=== PATIENT | female | born 1995 | race Caucasian/White ===

== ENCOUNTER 2018-12-07 12:10 | Emergency (ER) | payer OTHER ==
[~2018-12-07] VITALS: Ht 167.7 cm; Wt 70.5 kg
--- NOTE | 2018-12-07 12:47 | ED GU-Female ---
General Chief Complaint: MANAGER LOCAL Stated Complaint: CONTRACTIONS History of Present Illness Date Seen by Provider: Dec 07, 2018 Time Seen by Provider: 12:15 Initial Comments The patient is a 23-year-old female, at 37 weeks gestational age, who pres ents with concern for contractions. The patient is in care home custody. Patient has been having contractions about 2-3 minutes apart starting earlier this morning. They have not progressed significantly. Patient was at her fastener technologist's office (Dr. Shirley) for this issue just prior to arrival. He instructed the patient and the upscale security officer escorting her that she was not in active labor and that she was safe to be driven by private vehicle to an appropriate hospital facility with labor and delivery available. Care Home supervisors adamantly refused to follow through on this and instead instructed the patient's escorting correctional o fficer to transport her to this freestanding emergency department without any obstetric support available. Patient is alert and oriented and has appropriate vital signs and denies any significant pain, and notes the contractions remain about 2-3 minutes apart. A cervical check demonstrates no progression and patient is noted to be dilated to about 1 cm at this time, the same as she was at the fastener technologist's office just prior to arrival. I discussed the situation with Dr. Shirley by telephone and he agrees with me that the patient is safe and appropriate for transfer to [facility] for labor and delivery admission. He accepts her for transfer to that facility, where they are anywhere for her and waiting. We'll proceed with EMS transfer at this time. Allergies and Home Medications Patient Home Medication List Home Medication List Reviewed: Yes Review of Systems Review of Systems Constitutional: see HPI All Other Systemes Reviewed Negative Unless Noted: Yes (Negative excepted noted.) Past Bubpxdu-Ljyfgj-Axelgg Hx Past Med/Social Hx: Reviewed Nursing Past Med/Soc Hx Family Medical History Reviewed Nursing Family Hx Physical Exam Vital Signs Capillary Refill : Height, Weight, BMI Height: '" Weight: lbs. oz. kg; BMI Method: General Appearance: no apparent distress This is a gravid 23-year-old female appearing nontoxic and in no acute distress. Head is normocephalic and atraumatic. Neck is supple and nontender. Oropharynx is moist. Lungs are clear to auscultation in all stations. There is a normal S1 and S2 without rubs or gallops and capillary refill is appropriate, less than 2 seconds globally. Abdomen is gravid appropriate to stated dates and is nontender. Skin is warm and dry without cyanosis, clubbing or edema. Cervix is dilated to 1 cm on examination. Psychiatrically, the patient in a straights appropriate mood and affect and is alert. Progress/Results/Core Measures Suspected Sepsis SIRS Temperature: Pulse: Respiratory Rate: Blood Pressure / Mean: Results/Orders Vital Signs/I&O Capillary Refill : Progress Note : Time: 12:48 Progress Note Cervix dilated only to 1 cm and heart tones are appropriate and maternal vital signs are appropriate and mom is alert and oriented and in no distress. The patient is not in active labor. Case discussed with Dr. Shirley, the patient's fastener technologist, who agrees with prompt transfer to [facility] for labor and delivery admission and graciously accepts the patient in transfer. We will proceed with transfer at this time. Departure Impression Primary Impression: Uterine contractions at greater than 20 weeks of gestation Disposition: ADMITTED INPATIENT Condition: Stable BRITTANEY ELIZABETH MD Dec 07, 2018 12:47
[2018-12-07 13:20] VITALS: BP 135/72
[2018-12-07] MEDS ORDERED: PREN-37 PO (14:44)
== END 2018-12-07 13:23 | disposition other institution (70) ==
LOC: EDUNIT# 12:10 → ER FS 12:12
DX: O62.9 Abnormality of forces of labor, unspecified (principal); Z3A.37 37 weeks gestation of pregnancy
CPT/HCPCS: 99282

== ENCOUNTER 2018-12-07 14:28 | Outpatient (CLI) | payer SELFPAY ==
[~2018-12-07] VITALS: Ht 165.1 cm; Wt 71.8 kg
--- NOTE | 2018-12-07 14:12 | NUR ---
LILIANA OSSA presented to unit via CART PER EMS from ED, accompanied by EMS CREW AND OFFICER, with c/o CONTRACTIONS. LILIANA SOSA voided and to bed. EFHM and TOCO applied, VS taken. LILIANA SOSA oriented to bed controls, call light, TV, heat, and A/C controls.
[2018-12-07] MEDS ORDERED: PREN-37 PO (14:44)
[2018-12-07 14:47] LABS: BILIRUBIN,URINE NEGATIVE (NEGATIVE); CLARITY,URINE CLEAR; COLOR,URINE YELLOW; GLUCOSE, URINE (UA) NEGATIVE (NEGATIVE); KETONES,URINE 2+ (NEGATIVE); LEUKOCYTE ESTERASE ,URINE NEGATIVE (NEGATIVE); NITRITE,URINE NEGATIVE (NEGATIVE); PH,URINE 5 (5-9); PROTEIN,URINE NEGATIVE (NEGATIVE)
[2018-12-07 14:51] VITALS: BP 107/68
[2018-12-07 14:53] LABS: BACTERIA,URINE NEGATIVE /HPF; WBC,URINE RARE /HPF
--- NOTE | 2018-12-07 15:02 | NUR ---
DR. RAY NOTIFIED OF PT'S ARRIVAL, CTX PATTERN, SVE. NEW ORDER RECEIVED. PT WAS SEEN IN THE CLINIC TODAY, TRANSFERRED TO [facility] FOR TRANSPORTATION AND THEN PRESENTED HERE PER EMS. [facility] AN [facility] WITH [facility].
[2018-12-07] MEDS ORDERED: TERBUTALINE INJ 1 MG/ML (BRETHINE) AMP ONE (15:04)
[2018-12-07] MEDS ORDERED: TERBUTALINE INJ 1 MG/ML (BRETHINE) AMP SC ONE ×2 (15:15→16:30)
--- NOTE | 2018-12-07 16:26 | NUR ---
DR. RAY NOTIFIED OF CURRENT CTX PATTERN AND LATEST SVE. NEW ORDERS RECEIVED.
[2018-12-07] MEDS ORDERED: LACTATED RINGERS 1,000 ML IV ONE (16:29)
[2018-12-07] MEDS ORDERED: LACTATED RINGERS 1,000 ML IV SCH (16:30)
--- NOTE | 2018-12-07 17:35 | NUR ---
REFER TO LABOR FLOW SHEET.
--- NOTE | 2018-12-07 17:35 | NUR ---
DR. RAY NOTIFIED OF CURRENT CTX PATTER. ORDER RECEIVED FOR DISCHARGE.
--- NOTE | 2018-12-07 17:48 | NUR ---
DISCHARGE PAPERS PROVIDED AND REVIEWED WITH PT, PT VERBALIZES UNDERSTANDING AND DENIES ANY QUESTIONS AT THIS TIME. PAPER SIGNED.
--- NOTE | 2018-12-07 18:30 | NUR ---
PT DISCHARGED FROM -[facility] TO PERSONAL AUTO VIA AMBULATORY IN STABLE CONDITION ACC BY OFFICER.
--- NOTE | 2018-12-10 08:02 | Physician Query-Final Dx ---
CLAUDIA PATEL 12/10/18 0802: Clinic Account Progress/Dx Physician Query: Please give diagnosis Please include # weeks gestation Date of Service Dec 07, 2018 at 14:28 KEANU RAY DO 12/11/18 0701: Clinic Account Progress/Dx Physician Query: Please give diagnosis (Intrauterine at 37 6/7 weeks 2. Pelvic Pain 3. Contractions) DIAGNOSIS: Diagnosis Intrauterine at 37 6/7 weeks 2. Pelvic Pain 3. Contractions CLAUDIA PATEL Dec 10, 2018 08:02 KEANU RAY DO Dec 11, 2018 07:01
[2018-12-18] MEDS ORDERED: IBUP-1780 PO (08:12)
[2018-12-18] MEDS ORDERED: DOCU100C37 PO (08:12)
[2018-12-18] MEDS ORDERED: OXC5T PO (08:12)
[2018-12-18] MEDS ORDERED: ACET-77 PO (08:12)
== END 2018-12-07 18:30 | disposition home or self-care (01) ==
LOC: WSo 14:28 → LDRP 14:28 → WSo 18:30
PROVIDERS: ATTEND Obstetrics & Gynecology
DX: O62.8 Other abnormalities of forces of labor (principal); Z3A.37 37 weeks gestation of pregnancy
CPT/HCPCS: 81000; 96360; 96372; 99213

== ENCOUNTER 2018-12-17 06:00 | Inpatient (IN) | payer OTHER ==
[~2018-12-17] VITALS: Ht 165 cm; Wt 71.8 kg
[2018-12-17] VITALS (48 sets, daily range): BP systolic 93–129; BP diastolic 54–79
[~2018-12-17 06:00] MED LIST: PREN-37 PO
--- NOTE | 2018-12-17 06:05 | NUR ---
LILIANA SOSA presented to unit via ambulatory in cuffs from ED, accompanied by [facility], with c/o INDUCTION. LILIANA SOSA weighed, gowned, voided, and to bed. EFHM and TOCO applied, VS taken. LILIANA SOSA oriented to bed controls, call light, TV, heat, and A/C controls.
[2018-12-17] MEDS ORDERED: D5 LR IV SOLUTION 1,000 ML IV ONE (06:42)
[2018-12-17] MEDS: D5 LR IV SOLUTION 1,000 ML IV SCH ×2 (06:44→10:48)
[2018-12-17] MEDS ORDERED: D5 LR IV SOLUTION 1,000 ML IV SCH (06:50)
[2018-12-17] MEDS ORDERED: OXYTOCIN/NORMAL SALINE 500 ML IV SCH ×2 (06:50→13:40)
[2018-12-17] MEDS ORDERED: CATHETER FLUSH 10 ML SYR IV PRN (07:00)
[2018-12-17] MEDS ORDERED: MINERAL OIL CONCENTRATE 99.9% 15 ML UDC TOP PRN (07:00)
[2018-12-17 07:20] LABS: BASOPHILS % (AUTO) 0 % (0-10); EOSINOPHILS # (AUTO) 0.1 10^3/uL (0.0-0.3); EOSINOPHILS % (AUTO) 1 % (0-10); HEMATOCRIT 35 % (35-52); HEMOGLOBIN 11.9 G/DL (11.5-16.0); LYMPHOCYTES # (AUTO) 2.7 X 10^3 (1.0-4.0); LYMPHOCYTES % (AUTO) 19 % (12-44); MEAN CORPUSCULAR HEMOGLOBIN 31 PG (25-34); MEAN CORPUSCULAR HGB CONC 34 G/DL (32-36); MEAN CORPUSCULAR VOLUME 91 FL (80-99); MEAN PLATELET VOLUME 12.6 FL (7.4-10.4); MONOCYTES % (AUTO) 7 % (0-12); NEUTROPHILS # (AUTO) 10.1 X 10^3 (1.8-7.8); NEUTROPHILS % (AUTO) 73 % (42-75); PLATELET COUNT 206 10^3/uL (130-400); RED CELL DISTRIBUTION WIDTH 13.8 % (10.0-14.5); WHITE BLOOD COUNT 13.9 10^3/uL (4.3-11.0)
[2018-12-17] MEDS ORDERED: OXYTOCIN/NORMAL SALINE 500 ML IV ONE (07:20)
--- NOTE | 2018-12-17 07:22 | History & Physical-OB ---
OB - Chief Complaint & HPI Date/Time Date of Admission: Date of Admission: Dec 17, 2018 at 06:07 Date seen by a Provider: Dec 17, 2018 Time Seen by a Provider: 07:00 Chief Complaint/History OB-Reason for Admission/Chief: Induction of Labor Hx : 2 Hx Para: 1 Expected Date of Delivery: Dec 25, 2018 Gestational Age in Weeks: 38 Gestational Age in Days: 6 Indication for induction: other (Gestational Hypertension) Admission Nurse Assessment Rev: Yes Allergies and Home Medications Allergies Coded Allergies: No Known Drug Allergies (Unverified , 12/07/18) Home Medications Vit/Iron Fumarate/FA 1 Each Tablet, 1 EACH PO DAILY, (Reported) Patient Home Medication List Home Medication List Reviewed: Yes OB - History Hx of Present Care: Yes (Late care) Ultrasounds: Normal mid trimester US (Late ultrasound) Obstetrical Complications: Gestational Hypertension Medical Complications: Other (History of syphylis--treated) Other Concerns: Ms. Urbina is incarcerated (inmate in [facility]) Information Induced Hypertension: Yes Maternal Gestational Diabetes: No Hemorrhage: No Obstetrical History Hx : 2 Hx Para: 1 Hx # Term Pregnancies: 1 Hx # Pregnancies: 0 Number of Living Children: 1 Hx Termination: No Patient Past Medical History Treated Syphilis, last titer 1:1 Social History/Family History Sexually Transmitted Disease: Yes Alcohol Use: Regular Use Immunizations Rubella: immune RPR/VDRL: Positive GBS Status: Negative HBsAG: Negative OB - Admission Exam Physical Exam HEENT: NCAT Heart: Rhythm Normal Lungs: Clear Abdomen: Gravid Extremities: Normal Reflexes: Normal Cervical Dilatation: 1cm (Cervix 1.5 cm/40%/-3 Vertex/Intact) Effacement: 50% Station: -3 Membranes: Intact Heart Rate: 130's Accelerations: Accelerations Present Decelerations: No Decelerations Short Term Variability: Present Retirement Variability: Average (6-25) Contractions on Admission: < 5 Minutes Apart Intensity: Mild Elias Scoring Tool (Modified) Dilation (cm): 1-2cm (1) Effacement (%): 31-51% (1) Descent/Station: -3 (0) Cervix Consistency: Medium(1) Cervix Position: Posterior (0) Add 1 point for: Each previous vaginal delivery (1) OB - Assessment/Plan/Diagnosis Assessment Assessment: induction of labor Admission Dx Intrauterine at 38 6/7 weeks 2. Gestational Hypertension 3. Incarcerated Patient Admission Status: Inpatient Order (span 2 midnights) Reason for Inpatient Admission: Intrauterine at 38 6/7 weeks 2. Gestational Hypertension 3. Incarcerated Patient Plan Plan: Induction Induction Method: per Pitocin Protocol KEANU RAY DO Dec 17, 2018 07:21
[2018-12-17] MEDS ORDERED: SUFENTA 0.6MCG/ML BUPIVA 0.125 100 ML ONE (08:50)
--- NOTE | 2018-12-17 09:05 | NUR ---
0905 Leana SUTHERLAND CRNA here for epidural placement. Procedure explained, consent reviewed and signed by anesthesia. Questions answered to patient's satisfaction. Time out taken to verify correct patient/procedure. 0910 Patient up to side of bed, assisted into sitting position. 0914 Betadine prep done x3 and sterile drape applied. 0917 Local done, see anesthesia record. 0921 Test dose given, see anesthesia record for drug and dosage. 0922 Test dose #2 given, see anesthesia record for drug and dosage. Epidural catheter secured in place. Epidural placement complete. 09 Assisted back into bed, monitors adjusted. Epidural dosed, see anesthesia record. Epidural of Sufenta/Bupvicaine @12cc/hr stated per pump. Patient tolerated procedure well.
[2018-12-17] MEDS ORDERED: fentaNYL INJECTION 100 MCG/2 ML AMP ONE (09:30)
[2018-12-17] MEDS ORDERED: FLU QUADRIvalent (5+ YOA) 2019-2020 (AFLURIA) 0.5 ML IM ONE (09:45)
[2018-12-17] MEDS ORDERED: LACTATED RINGERS 1,000 ML IV ONE (09:57)
[2018-12-17] MEDS ORDERED: NALOXONE 0.4 MG/ML 1 ML (NARCAN) VIAL IV PRN ×2 (10:00)
[2018-12-17] MEDS ORDERED: ONDANSETRON 4 MG/2 ML (SDV) Z0FRAN IV PRN (10:00)
[2018-12-17] MEDS ORDERED: METOCLOPRAMIDE INJ 10 MG/2 ML (REGLAN) IV PRN (10:00)
[2018-12-17] MEDS ORDERED: EPIDURAL (SUFENTA 0.6MCG/ML BUPIVA 0.125%) 100 ML BAG EPI PRN (10:00)
[2018-12-17] MEDS ORDERED: diphenhydrAMINE 50 MG/ML INJ (BENADRYL) IV PRN (10:00)
[2018-12-17] MEDS ORDERED: LIDOCAINE 1% INJ 20 ML 20 ML VIAL ONE (12:46)
--- NOTE | 2018-12-17 13:12 | NUR ---
Refer to labor flow sheet.
--- NOTE | 2018-12-17 13:32 | NUR ---
1314 Cord blood obtained and sent to lab 1332 Spontaneous delivery of intact placenta via Dr Shirley. Placenta sent to lab for processing. 1333 pitocin @ 999ml/hr see EMAR.
--- NOTE | 2018-12-17 13:41 | NUR ---
1341 post delivery recovery started. FF@ U. mod rubra, no clots expressed. Clean v-pad. See v/s intervention. 1345 FF@U. mod rubra. 1400 FF@U. mod rubra. 1415 FF@U. light rubra. 1430 FF@U. Light rubra, 1445 FF@U. light rubra. 1515 FF@U. light rubra 1545 FF@U. light rubra. v-pad changed and bonnie care done.
[2018-12-17] MEDS ORDERED: WITCH HAZEL(TUCKS) 40 EA JAR TOP PRN (13:45)
[2018-12-17] MEDS ORDERED: BENZOCAINE/MENTHOL (DERMOPLAST) 56 ML CAN TP PRN (13:45)
[2018-12-17] MEDS ORDERED: MEASLES,MUMPS,RUBELLA 1 EA INJ SQ ONE (13:45)
[2018-12-17] MEDS ORDERED: TETANUS,DIPTH,PERTUSS P/F (BOOSTRIX) 0.5 ML VIAL IM ONE (13:45)
[2018-12-17] MEDS ORDERED: DIBUCAINE (NUPERCAINAL) 1% OINT 30 GM TOP PRN (13:45)
--- NOTE | 2018-12-17 13:45 | NUR ---
Epidural cath removed tip intact. band aid to site. No bleeding ,no bruising noted.
--- NOTE | 2018-12-17 13:47 | OB Labor & Delivery Record ---
Vag Delivery Note Vag Delivery Note Date of Delivery: 12/17/18 Preoperative Diagnosis: Latoya Oleary is a (23 /Para 2 / 1, Gestational Age (wks)38with [6/7 days 2. Gestations Hypertension 3. Incarcerated 4. History of Substance Abuse] Postoperative Diagnosis: Same Surgeon: KEANU RAY Media Marketing Director: [None] Anesthesia: [Epidural] Delivery Type: [Normal Spontaneous Vaginal Delivery with Superficial Right Labial Laceration, hemostatic, not repaired] Findings: [] Viable [male] infant, apgars [9, 9], weight [] Lacerations: Right superficial labial Intact placenta with 3 vessel cord. No nuchal cord, body cord or shoulder dystocia Cytotec 800 mcg placed for hemorrhage prophylaxis Estimated Blood Loss: [300] ml Complications: None Condition: Stable Description of Procedure: The patient is a 23 year old female who presented [for Pitocin Induction of Labor]. She was admitted and informed consent was obtained. Her labor course was remarkable for [decelerations--resolved with hydration] She progressed to complete dilatation and began to push. She was then set up for delivery. The infant's head was delivered atraumatically in the [CHRISSY] position. The shoulders and remainder of the 's body were then delivered without difficulty. Upon delivery, the head was held below the level of the perineum and the mouth and nares were bulb suctioned. The cord was doubly clamped and cut and the was handed off to the pediatric staff. An intact placenta with 3-vessel cord delivered via Rei and there was found to be minimal bleeding.~ Vigorous fundal massage was performed and the fundus was found to be firm. IV oxytocin was given. Examination of the vagina and perineum revealed a [superficial right labial] laceration, hemostatic, not repaired Following delivery tge sponge, instrument and needle counts were correct. Mom and baby were both in stable condition in the labor suite. Vitals - Labs Vital Signs - I&O Vital Signs Date Time Temp Pulse Resp B/P (MAP) Pulse Ox O2 Delivery O2 Flow Rate FiO2 12/17/18 10:18 53 18 106/64 (78) 100 Room Air 12/17/18 10:01 107/64 (78) 12/17/18 10:00 36.7 77 18 100/62 (75) 100 Room Air 12/17/18 09:54 74 18 97/62 (74) 100 Room Air 12/17/18 09:50 73 18 102/58 (73) 99 Room Air 12/17/18 09:44 76 18 93/54 (67) 99 Room Air 12/17/18 09:39 85 18 105/61 (76) 99 Room Air 12/17/18 09:31 72 18 104/58 (73) 100 Room Air 12/17/18 09:29 61 18 114/59 (77) 100 Room Air 12/17/18 09:27 66 18 113/63 (80) 100 Room Air 12/17/18 09:24 74 18 101/69 (80) 99 Room Air 12/17/18 09:20 75 18 104/67 (79) Room Air 12/17/18 09:17 68 18 106/69 (81) 99 Room Air 12/17/18 09:13 66 18 111/68 (82) 100 Room Air 12/17/18 09:06 64 18 118/77 (91) 100 Room Air 12/17/18 09:02 62 18 122/79 (93) 100 Room Air 12/17/18 08:54 65 18 123/76 (92) Room Air 12/17/18 08:40 57 18 114/74 (87) Room Air 12/17/18 08:23 61 18 112/73 (86) Room Air 12/17/18 08:07 74 18 112/73 (86) 94 Room Air 12/17/18 07:54 67 18 111/71 (84) Room Air 12/17/18 07:39 68 18 106/67 (80) Room Air 12/17/18 07:23 36.6 63 18 106/74 (85) Room Air 12/17/18 07:23 36.6 63 18 106/74 (85) Room Air 12/17/18 07:09 64 18 119/74 (89) Room Air Labs Laboratory Tests 12/17/18 06:40: White Blood Count 13.9H, Red Blood Count 3.89L, Hemoglobin 11.9, Hematocrit 35, Mean Corpuscular Volume 91, Mean Corpuscular Hemoglobin 31, Mean Corpuscular Hemoglobin Concent 34, Red Cell Distribution Width 13.8, Platelet Count 206, Mean Platelet Volume 12.6H, Neutrophils (%) (Auto) 73, Lymphocytes (%) (Auto) 19, Monocytes (%) (Auto) 7, Eosinophils (%) (Auto) 1, Basophils (%) (Auto) 0, Neutrophils # (Auto) 10.1H, Lymphocytes # (Auto) 2.7, Monocytes # (Auto) 1.0, Eosinophils # (Auto) 0.1, Basophils # (Auto) 0.0 KEANU RAY DO Dec 17, 2018 13:47
[2018-12-17] MEDS ORDERED: CATHETER FLUSH 10 ML SYR IV SCH (14:00)
--- NOTE | 2018-12-17 14:54 | NUR ---
CM/MANPREET spoke with the patients community services officer Deja Jamal ([phone]) in regard to next steps for baby boy. Another cash person will be Pa Avalos ([phone]). There was not a face to face with patient. The community services officer stated that she did not contact DCF after the of the baby. The community services officer called her place of work for CM/MANPREET to speak with another worker. VIK/MANPREET called [facility] and they state that forensic social worker Radha Collins [phone]. [phone]) is aware and already working on the case. [facility] wanted a toxicology report from patient faxed over, a toxicology screen was not done. VIK/MANPREET made an online [facility] report the case number is [id number]. Will continue to follow. Addendum: 12/18/18 at 1005 by GATITO MERCHANT Discussed with student, approved.
--- NOTE | 2018-12-17 15:38 | NUR ---
Clarification that Pa Avalos is an officer at the [facility]. VIK/MANPREET spoke with the patients nurse to see if any blood or urine was pulled this morning before the epidural was given. The lab states that the blood cannot be ran due to it sitting out and not being spun down within 2 hours. The lab states that they do not have any urine to test. VIK/MANPREET spoke with the nurse to make sure that the baby will have a toxicology screening done. The nurse stated that baby will have one done. VIK/MANPREET is waiting for a call back from DCF social service liaison Radha Collins to inform her of this information. Will continue to follow. Addendum: 12/18/18 at 1006 by GATITO MERCHANT Discussed with student, approved.
--- NOTE | 2018-12-17 18:15 | NUR ---
Pt up to bathroom without difficulty. Positive void. bonnie care and instructions given on bonnie bottle. Pt verbalized understanding. Transferred to room 305 via wheel chair. IV intransit. To bed call light within reach.
[2018-12-17] MEDS: ACETAMINOPHEN 500 MG TAB (TYLENOL) PO SCH (19:56)
[2018-12-17] MEDS: DOCUSATE SODIUM 100 MG (COLACE) CAP PO SCH (19:56)
[2018-12-17] MEDS: IBUPROFEN 800 MG (MOTRIN) TAB PO SCH (19:56)
--- NOTE | 2018-12-17 20:00 | NUR ---
pt resting in bed watching tv. gaurd at bedside. assessment completed. pt denies any needs or concerns. will continue to monitor.
[2018-12-18] MEDS: ACETAMINOPHEN 500 MG TAB (TYLENOL) PO SCH ×2 (02:03→09:52)
[2018-12-18 02:06] VITALS: BP 114/59
[2018-12-18] MEDS: IBUPROFEN 800 MG (MOTRIN) TAB PO SCH ×2 (05:41→14:00)
[2018-12-18 05:42] VITALS: BP 87/51
[2018-12-18 06:19] LABS: BASOPHILS % (AUTO) 0 % (0-10); EOSINOPHILS # (AUTO) 0.1 10^3/uL (0.0-0.3); EOSINOPHILS % (AUTO) 1 % (0-10); HEMATOCRIT 33 % (35-52); HEMOGLOBIN 10.9 G/DL (11.5-16.0); LYMPHOCYTES # (AUTO) 2.8 X 10^3 (1.0-4.0); LYMPHOCYTES % (AUTO) 19 % (12-44); MEAN CORPUSCULAR HEMOGLOBIN 31 PG (25-34); MEAN CORPUSCULAR HGB CONC 33 G/DL (32-36); MEAN CORPUSCULAR VOLUME 92 FL (80-99); MEAN PLATELET VOLUME 11.9 FL (7.4-10.4); MONOCYTES # (AUTO) 1.1 X 10^3 (0.0-1.0); MONOCYTES % (AUTO) 8 % (0-12); NEUTROPHILS # (AUTO) 10.7 X 10^3 (1.8-7.8); NEUTROPHILS % (AUTO) 73 % (42-75); PLATELET COUNT 192 10^3/uL (130-400); RED CELL DISTRIBUTION WIDTH 14.1 % (10.0-14.5); WHITE BLOOD COUNT 14.8 10^3/uL (4.3-11.0)
[2018-12-18] MEDS ORDERED: PRENATAL VITAMIN 1 EA TAB PO SCH (07:00)
--- NOTE | 2018-12-18 07:22 | Anesthesia-Regional Post-Op ---
Regional Patient Condition Mental Status: Alert, Oriented x3 Circulation: Same as Pre-Op Headache: Absent Sensation: Full Recovery Motor Block: Absent Post Op Complications Complications None Follow Up Care/Instructions Patient Instructions None needed. Anesthesia/Patient Condition Patient is doing well, no complaints, stable vital signs, no apparent adverse anesthesia problems. No complications reported per nursing. PÉREZ AGUILAR CRNA Dec 18, 2018 07:22
[2018-12-18] MEDS ORDERED: ACET-77 PO (08:12)
[2018-12-18] MEDS ORDERED: DOCU100C37 PO (08:12)
[2018-12-18] MEDS ORDERED: OXC5T PO (08:12)
[2018-12-18] MEDS ORDERED: IBUP-1780 PO (08:12)
--- NOTE | 2018-12-18 08:19 | Discharge Summary ---
Diagnosis/Chief Complaint Date of Admission Dec 17, 2018 at 06:07 Date of Discharge December 18, 2018 Discharge Date: Dec 18, 2018 Discharge Time: 14:00 Admission Diagnosis Admission Diagnosis Intrauterine at 38 6/7 weeks 2. Gestational Hypertension 3. Incarcerated 4. History of Substance Abuse Discharge Diagnosis Intrauterine at 38 6/7 weeks 2. Gestational Hypertension 3. Incarcerated 4. History of Substance Abuse Reason Hospital Visit Pitocin Induction of Labor Discharge Summary Hospital Course Was the Problem List Reviewed?: Yes Hospital Course Ms. Urbina was admitted for Pitocin Induction of Labor. Once admitted she was started on Pitocin. I artificially ruptured her membranes. She received an Epidural for antepartum pain management. She progressed to complete, delivered healthy, viable male infant without complications The remainder of her hospitalization was unremarkable. Her vital signs remained stable throughout her hospitalization She will be discharged back to detention with instructions, prescriptions, and a follow up appointment. Labs Laboratory Tests 12/17/18 06:40: White Blood Count 13.9H, Red Blood Count 3.89L, Mean Platelet Volume 12.6H, Neutrophils # (Auto) 10.1H 12/18/18 05:55: White Blood Count 14.8H, Red Blood Count 3.56L, Mean Platelet Volume 11.9H, Neutrophils # (Auto) 10.7H, Hemoglobin 10.9L, Hematocrit 33L, Monocytes # (Auto) 1.1H Procedures None. Discharge Physical Examination Allergies: Coded Allergies: No Known Drug Allergies (Unverified , 12/07/18) Vitals & I&Os Vital Signs Date Time Temp Pulse Resp B/P (MAP) Pulse Ox O2 Delivery O2 Flow Rate FiO2 12/18/18 05:42 36.6 66 18 87/51 (63) 98 12/18/18 02:06 Room Air General Appearance: Alert, Oriented X3, Cooperative HEENT: Atraumatic Respiratory: Clear to Auscultation, Normal Air Movement Cardiovascular: Regular Rate, No Murmurs Abdominal: Normal Bowel Sounds, Soft Extremities: No Clubbing, No Cyanosis Skin: No Rashes Neuro: Normal Gait, Normal Speech Psych/Mental Status: Mental Status NL Discharge Home Medications Reviewed and agree with Discharge Medication list on patient's Discharge Instruction sheet Instructions to Patient/Family Please see electronic discharge instructions given to patient. Clinical Quality Measures DVT/VTE Risk/Contraindication: Risk Factor Score Per Nursin RFS Level Per Nursing on Admit: 2=Moderate KEANU RAY DO Dec 18, 2018 08:18
[2018-12-18 09:00] VITALS: BP 114/53
--- NOTE | 2018-12-18 09:00 | NUR ---
A.M. ASSESSMENT COMPLETED. VSS. GUARD AT BEDSIDE. EATING BREAKFAST. SET UP SHOWER.
[2018-12-18] MEDS ORDERED: FLU QUADRIvalent (5+ YOA) 2019-2020 (AFLURIA) 0.5 ML IM ONE (09:44)
[2018-12-18] MEDS: DOCUSATE SODIUM 100 MG (COLACE) CAP PO SCH (09:52)
[2018-12-18] MEDS ORDERED: TETANUS,DIPTH,PERTUSS P/F (BOOSTRIX) 0.5 ML VIAL IM ONE (10:03)
--- NOTE | 2018-12-18 10:30 | NUR ---
PT SHOWERED WITHOUT PROBLEMS.
--- NOTE | 2018-12-18 11:30 | NUR ---
[facility] NURSE FIFI STILL CALLED TO SEE WHAT SUPPLIES PT WILL NEED AND RXS. INFORMED OF SCRIPTS AND SUPPLIES.
[2018-12-18 13:00] VITALS: BP 95/62
--- NOTE | 2018-12-18 13:00 | NUR ---
EATING LUNCH. GUARD REMAINS AT BEDSIDE. PLAN FOR DISCHARGE TODAY.
--- NOTE | 2018-12-18 14:20 | NUR ---
DISCHARGE INSTRUCTIONS REVIEWED WITH COPY TO PT. RXS GIVEN. ACADEMIC GUIDANCE SPECIALIST TOOK PAPERWORK. STATES UNDERSTANDING OF ALL INSTRUCTIONS AND NEED TO F/U SCHEDULED AND NEEDED. PT TAKEN TO NURSERY WINDOWS ACC BY THIS RN AND GUARD TO VIEW INFANT THROUGH THE GLASS.
[2018-12-18 14:40] VITALS: BP 95/62
--- NOTE | 2018-12-18 14:40 | NUR ---
DISMISSED VIA W/C FROM [facility] IN STABLE CONDITION TO CAR IN HANDCUFFS AND LEG CUFFS ACC BY BHAVESH IQBAL AND GENIA GREEN.
--- NOTE | 2018-12-18 17:47 | NUR ---
CM/SS. Infant custody and placement was managed by [facility] MARCELO/Brunilda Kay [phone]. Maternal grandmother, Geni Urbina, was awarded custody, DCF will coordinate directly with her for pharmacy picking technician once is medically released.
== END 2018-12-18 14:40 | DRG 807 ==
LOC: LDRP 06:07 → EEVIPCON 06:07 → WS 18:15
PROVIDERS: ADMIT Obstetrics & Gynecology; ATTEND Obstetrics & Gynecology
PROC: 10E0XZZ Delivery of Products of Conception, External Approach (ICD-10-PCS; principal; 2018-12-17)
PROC: 3E033VJ Introduction of Other Hormone into Peripheral Vein, Percutaneous Approach (ICD-10-PCS; 2018-12-17)
DX: O13.4 Gestational [pregnancy-induced] hypertension without significant proteinuria, complicating childbirth (principal); Z37.0 Single live birth; O99.324 Drug use complicating childbirth; O34.5 Maternal care for other abnormalities of gravid uterus; F19.11 Other psychoactive substance abuse, in remission; O70.0 First degree perineal laceration during delivery; Z23 Encounter for immunization; Z3A.38 38 weeks gestation of pregnancy
CPT/HCPCS: 36415; 85025; 86850; 86900; 86901; 90715